=== PATIENT | female | born 1985 | race Caucasian/White ===

== ENCOUNTER 2019-01-01 08:20 | Emergency (ER) | payer MEDICAID ==
[~2019-01-01] VITALS: Ht 152.4 cm; Wt 71.4 kg
[~2019-01-01 08:20] MED LIST: IBUP-1542 PO; NITR-58 PO; RTPRO
[2019-01-01 08:24] VITALS: Ht 152.4 cm; Wt 71.4 kg
[2019-01-01] MEDS ORDERED: ONDANSETRON (ODT) 4 MG TAB ODT STA (08:45)
[2019-01-01 09:33] VITALS: BP 120/80; PULSE 76; RESP 18
== END 2019-01-01 11:05 | disposition home or self-care (01) ==
LOC: FTE 08:20
DX: N30.00 Acute cystitis without hematuria (principal)
CPT/HCPCS: 76801; 76817; 81001; 81025; Z7502; Z7610